=== PATIENT | female | born 1980 | race Caucasian/White ===

== ENCOUNTER 2017-08-23 14:25 | Emergency (ER) | payer BC ==
--- NOTE | 2017-08-23 15:29 | EDM.PDOC ---
ED HPI GENERAL MEDICAL PROBLEM - General Chief Complaint: Lower Extremity Injury/Pain Stated Complaint: PAIN IN LT LEG Time Seen by Provider: 08/23/17 15:29 Source of Information: Reports: Patient - History of Present Illness INITIAL COMMENTS - FREE TEXT/NARRATIVE: HISTORY AND PHYSICAL: History of present illness: [ Patient presents with left lower extremity pain waxing and waning she states is worse with sitting relieved by standing and lying she rates 4 out of 10 nonradiating involving posterior thigh, she is concerned about a blood clot that she has factor V Leyden deficiency She denies any other injury or trauma no fever nausea vomiting chills sweats no chest pain shortness of breath headache dizziness palpitation no bowel or urine symptoms Patient has had symptoms over the last 24 hours No history of low back problems ] Review of systems: As per history of present illness and below otherwise all systems reviewed and negative. Past medical history: As per history of present illness and as reviewed below otherwise noncontributory. Surgical history: As per history of present illness and as reviewed below otherwise noncontributory. Social history: No reported history of drug or alcohol abuse. Family history: As per history of present illness and as reviewed below otherwise noncontributory. Physical exam: HEENT: Atraumatic, normocephalic, pupils reactive, negative for conjunctival pallor or scleral icterus, mucous membranes moist, throat clear, neck supple, nontender, trachea midline. Lungs: Clear to auscultation, breath sounds equal bilaterally, chest nontender. Heart: S1S2, regular, negative for clicks, rubs, or JVD. Abdomen: Soft, nondistended, nontender. Negative for masses or hepatosplenomegaly. Negative for costovertebral tenderness. Pelvis: Stable nontender. Genitourinary: Deferred. Rectal: Deferred. Extremities: Atraumatic, negative for cords or calf pain. Neurovascular unremarkable. Straight leg raise to 30 without radiculopathy she does have tight hamstrings Neuro: Awake, alert, oriented. Cranial nerves II through XII unremarkable. Cerebellum unremarkable. Motor and sensory unremarkable throughout. Exam nonfocal. Diagnostics: [CBC INR Lumbar spine Ultrasound left lower extremity DVT rule out ] Patient declines hCG as patient hasn't IUD and has a vasectomy Therapeutics: [Rest ice ibuprofen ]Follow-up primary care 2 weeks sooner as needed Impression: Muscle strain [Pain left lower extremity-left sciatic distribution pain Rule out DVT History of factor V Leyden deficiency ] Definitive disposition and diagnosis as appropriate pending reevaluation and review of above. Left Upper Leg Pain Score (Numeric/FACES): 2 - Related Data Allergies Allergy/AdvReac Type Severity Reaction Status Date / Time No Known Allergies Allergy Verified 08/23/17 15:03 Home Meds: Home Meds FLUoxetine [PROzac] 10 mg PO DAILY 08/23/17 [History] Levonorgestrel [Mirena] 1 dose IUTERINE DAILY 08/23/17 [History] Phentermine HCl 37.5 mg PO DAILY 08/23/17 [History] Past Medical History Hematologic History: Reports: Other (See Below) Other Hematologic History: clotting disorder- factor V leiden - Infectious Disease History Infectious Disease History: Reports: Chicken Pox Social & Family History - Family History Family Medical History: Noncontributory - Tobacco Use Smoking Status *Q: Current Every Day Smoker Years of Tobacco use: 16 Packs/Tins Daily: 0.5 - Recreational Drug Use Recreational Drug Use: No Review of Systems - Review of Systems Review Of Systems: ROS reveals no pertinent complaints other than HPI. ED EXAM, GENERAL - Physical Exam Exam: See Below Course - Vital Signs Last Recorded V/S: Last Vital Signs Temp 96.9 F 08/23/17 14:58 Pulse 100 08/23/17 14:58 Resp 18 08/23/17 14:58 BP 164/110 H 08/23/17 14:58 Pulse Ox 98 08/23/17 14:58 - Orders/Labs/Meds Orders: Active Orders 24 hr Category Date Time Status Lumbar Spine 2 or 3V [CR] Stat Exams 08/23/17 15:28 Taken Venous Doppler Lwr Ext Lt [US] Stat Exams 08/23/17 15:28 Taken Labs: Laboratory Tests 08/23/17 08/23/17 Range/Units 15:37 15:37 WBC 8.14 (4.0-11.0) K/uL RBC 4.46 (4.30-5.90) M/uL Hgb 15.6 (12.0-16.0) g/dL Hct 44.2 (36.0-46.0) % MCV 99.1 H (80.0-98.0) fL MCH 35.0 H (27.0-32.0) pg MCHC 35.3 (31.0-37.0) g/dL RDW Std Deviation 44.2 (28.0-62.0) fl RDW Coeff of Mario 12 (11.0-15.0) % Plt Count 287 (150-400) K/uL MPV 8.90 (7.40-12.00) fL Neut % (Auto) 65.3 (48.0-80.0) % Lymph % (Auto) 23.6 (16.0-40.0) % Rush % (Auto) 8.1 (0.0-15.0) % Eos % (Auto) 2.6 (0.0-7.0) % Baso % (Auto) 0.4 (0.0-1.5) % Neut # (Auto) 5.3 (1.4-5.7) K/uL Lymph # (Auto) 1.9 (0.6-2.4) K/uL Rush # (Auto) 0.7 (0.0-0.8) K/uL Eos # (Auto) 0.2 (0.0-0.7) K/uL Baso # (Auto) 0.0 (0.0-0.1) K/uL Nucleated RBC % 0.0 /100WBC Nucleated RBCs # 0 K/uL INR 0.96 Departure - Departure Time of Disposition: 17:22 Disposition: Home, Self-Care 01 Condition: Good Clinical Impression: Factor V Leiden, Lower extremity pain, Muscle strain Clinical Impression: (Ruled Out): Factor V deficiency - Discharge Information Referrals: PCP,None [Primary Care Provider] - Forms: ED Department Discharge Additional Instructions: Rest Ice 20 minute intervals 3 times daily 7-10 days A ibuprofen 400 mg 3 times daily 7-10 days Return if symptoms persist or worsen Follow-up with primary care 2 weeks sooner as needed [facility] [address] [place] [id number] The following information is given to patients seen in the emergency department who are being discharged to home. This information is to outline your options for follow-up care. We provide all patients seen in our emergency department with a follow-up referral. The need for follow-up, as well as the timing and circumstances, are variable depending upon the specifics of your emergency department visit. If you don't have a primary care physician on staff, we will provide you with a referral. We always advise you to contact your personal physician following an emergency department visit to inform them of the circumstance of the visit and for follow-up with them and/or the need for any referrals to a consulting specialist. The emergency department will also refer you to a specialist when appropriate. This referral assures that you have the opportunity for follow-up care with a specialist. All of these measure are taken in an effort to provide you with optimal care, which includes your follow-up. Under all circumstances we always encourage you to contact your private physician who remains a resource for coordinating your care. When calling for follow-up care, please make the office aware that this follow-up is from your recent emergency room visit. If for any reason you are refused follow-up, please contact the [facility] emergency department at and asked to speak to the emergency department charge nurse. - My Orders Last 24 Hours: My Active Orders 08/23/17 15:28 Lumbar Spine 2 or 3V [CR] Stat Venous Doppler Lwr Ext Lt [US] Stat - Assessment/Plan Last 24 Hours: My Active Orders 08/23/17 15:28 Lumbar Spine 2 or 3V [CR] Stat Venous Doppler Lwr Ext Lt [US] Stat
--- NOTE | 2017-08-26 08:41 | CR ---
EXAM DATE: 08/23/17 PATIENT'S AGE: 37 Patient: MARVIN ABREU Facility: [place], [place] Site . Site : 1980 Study: XRay Spine Lumbar [id number]/23/2018 4:36:42 PM Ordering Physician: Patrick Monk Final Report: INDICATION: Left leg pain TECHNIQUE: Lumbar spine 3 view. COMPARISON: None available FINDINGS: Normal lumbar spine alignment. Preserved vertebral body heights and disk spaces. Anatomically aligned facets. An IUD in the pelvis. IMPRESSION: No gross abnormality seen. Dictated by Russel Oleary MD @ 08/23/2017 5:12:57 PM Dictated by: Russel Oleary MD @ 08/23/2017 17:13:01 (Electronic Signature) Report Signed by Proxy. MTDD
--- NOTE | 2017-08-26 08:42 | US ---
EXAM DATE: 08/23/17 PATIENT'S AGE: 37 Patient: MARVIN ABREU Facility: [place], [place] Site . Site : 1980 Study: US Extremity Left -08/23/2017 4:49:51 PM Ordering Physician: Patrick Monk Final Report: INDICATION: Left leg pain TECHNIQUE: Ultrasound venous duplex lower left extremity. Compression venous exam was performed using crowell-scale, color Doppler, and spectral Doppler analysis. COMPARISON: None. FINDINGS: Sonographic imaging demonstrates the left common femoral, deep femoral, superficial femoral, popliteal, posterior tibial, and greater saphenous and the contralateral right common femoral veins to be fully compressible with normal color Doppler blood flow. Remainder negative. IMPRESSION: Normal left lower extremity venous ultrasound without evidence of DVT. Dictated by Jasson Odom MD @ Aug 23 2017 4:56PM (Electronic Signature) Report Signed by Proxy. MARYANN
== END 2017-08-23 17:35 | disposition home or self-care (01) ==
LOC: MW.ED 14:25
DX: S76.912A Strain of unspecified muscles, fascia and tendons at thigh level, left thigh, initial encounter (principal); D68.51 Activated protein C resistance; F17.210 Nicotine dependence, cigarettes, uncomplicated; Z79.899 Other long term (current) drug therapy; X58.XXXA Exposure to other specified factors, initial encounter
CPT/HCPCS: 36415; 72100; 72100-26; 85025; 85610; 93971-26-LT; 93971-LT; 99283; 99284-25